=== PATIENT | female | born 2000 | race Caucasian/White ===

== ENCOUNTER 2020-10-27 09:41 | Inpatient (IN) | payer OTHER ==
[~2020-10-27] VITALS: Ht 172.7 cm; Wt 59.0 kg
--- NOTE | ~2020-10-27 | O ---
[facility] [place] [address] OPERATIVE REPORT Name: FLORENTIN HOFFMANN Room #: 436-P ADM IN M.R.#: [id number] Admission: 10/27/20 Attend Phys: Gerry Puga, Discharge: Date of : 89 Report #: [id number] THIS REPORT FOR: cc: SARAH - Jasmin family physician/PCP SARAH - No family physician/PCP Gerry Puga MD ~ CC: [facility] physician/PCP Gerry Puga DATE OF SERVICE: 10/28/2020 PREOPERATIVE DIAGNOSIS: Acute appendicitis. POSTOPERATIVE DIAGNOSIS: Acute appendicitis. OPERATION: Laparoscopic appendectomy. SURGEON: Gerry Puga MD ANESTHESIA: General. ESTIMATED BLOOD LOSS: Minimal. SPECIMEN: Appendix. DESCRIPTION OF PROCEDURE: After informed consent was obtained, the patient was brought to the operating room and placed supine. SCDs were placed and working, preoperative antibiotics were administered, general anesthesia was induced. The abdomen was prepped and draped in the usual sterile fashion. A 10 mm incision was made below the umbilicus. Fascia was incised and a trocar was placed. Pneumoperitoneum was established. Right upper quadrant and left lower quadrant 5 mm trocars were placed. The appendix was grasped and retracted anteriorly. A window was made in the mesoappendix. The mesoappendix was ligated with a PHOEBE suresh load stapler. I then ligated the base of the appendix with a PHOEBE blue load stapler. Appendix was then placed into an Endopouch and removed. The fascia at the umbilicus was closed with a [id number] 0 Vicryl. Skin was closed with 4-0 Monocryl. Incisions were sealed with Steri-Strips. COMPLICATIONS: None. [facility] [address] [place] [address] OPERATIVE REPORT Name: FLORENTIN HOFFMANN Room #: 436-P [facility] IN .R.#: [id number] Admission: 10/27/20 Attend Phys: Gerry Puga, Discharge: Date of : 89 Report #: [id number] DISPOSITION: The patient was taken to recovery in satisfactory condition. By: [id number] Gerry Puga MD /nt
[2020-10-27 09:41] VITALS: BP 141/57
[2020-10-27 10:19] LABS: URINE BILIRUBIN NEGATIVE (Negative); URINE BLOOD NEGATIVE (Negative); URINE CLARITY SL CLOUDY; URINE COLOR YELLOW; URINE GLUCOSE-RANDOM* NEGATIVE (Negative); URINE KETONES 1+ (Negative); URINE NITRITE-REFLEX NEGATIVE (Negative); URINE PROTEIN (DIPSTICK) NEGATIVE (Negative); URINE UROBILINOGEN 0.2 E.U./dl (0.2-1.0)
[2020-10-27 10:26] LABS: URINE LEUKOCYTES-REFLEX 3+ (Negative)
[2020-10-27 10:38] LABS: ABSOLUTE NEUTROPHILS 10.4 thou/uL (1.4-8.2); BASOPHILS 0.3 % (0.0-2.0); EOSINOPHILS 0.7 % (0.0-3.0); HEMATOCRIT 38.3 % (37.0-47.0); HEMOGLOBIN 12.7 gm/dL (12.0-15.0); LYMPHOCYTES 6.9 % (24.0-44.0); MCH 29.6 pg (26.0-34.0); MCHC 33.1 g/dL (28.0-37.0); MCV 89.6 fL (80.0-100.0); MONOCYTES 6.9 % (1.0-8.0); PLATELET COUNT 181 thou/uL (150-400); POLYS 85.2 % (36.0-66.0); RBC 4.27 mil/uL (4.20-5.00); RDW 12.7 % (10.5-14.5); WBC 12.2 thou/uL (4.0-11.0)
[2020-10-27 10:38] LABS: CASTS None Seen /LPF (None Seen); SQUAMOUS >10 Many /LPF (0-3); URINE RBC 0-2 Rare /HPF (0-2)
[2020-10-27 10:39] LABS: CALCIUM 9.3 mg/dL (8.5-10.1); CREATININE 0.9 mg/dL (0.6-1.0); POTASSIUM 3.5 mmol/L (3.5-5.1)
[2020-10-27 10:39] LABS: AMORPHOUS URATES Moderate /LPF (None Seen)
[2020-10-27 10:45] LABS: ALBUMIN 4.1 g/dL (3.4-5.0); TOTAL BILIRUBIN 1.3 mg/dL (0.2-1.0)
[2020-10-27 19:07] VITALS: BP 122/70
[2020-10-27 20:43] VITALS: BP 112/56
[2020-10-27 21:07] VITALS: BP 109/60
--- NOTE | 2020-10-27 23:07 | NUR ---
PATIENT ARRIVED VIA WHEELCHAIR FROM ED. ALERT AND ORIENTED X4. DENIES PAIN. NEW ORDER FOR ALPRAZOLAM. IVF INFUSING W/O COMPLICATION. COOPERATIVE AND PLEASANT.
[2020-10-28] VITALS (7 sets, daily range): BP systolic 11–116; BP diastolic 54–72
--- NOTE | 2020-10-28 11:50 | NUR ---
ASSUMED PT CARE THIS AM. PT VSS, A&OX4. PT AMBULATORY TO THE RESTROOM. IV PATENT, FLUIDS INFUSING WITHOUT COMPLAINT. PT COMPLAINING OF NO PAIN. NPO FOR PROCEDURE TODAY. PT CONTINENT OF B&B. PT CALLS APPROPRIATELY WHEN NEEDED. PT WENT DOWN FOR SURGERY THIS AM.
--- NOTE | 2020-10-28 16:12 | NUR ---
ASSESSMENT: CM REVIEWED CHART AND SPOKE WITH PT. PT IS ALERT AND ORIENTED X4. PT IS S/P LAP APPE. PT REPORTS LIVING IN A HOUSE WITH HER AUNT WHO IS AN RN. PT REPORTS SHE IS FULLY INDEPENDENT WITH ADLS AND AMBULATION. PT REPORTS HAVING NO INSURANCE. CM PROVIDED PATIENT WITH A [employer] PACKET/SAFETY NET PACKET. PT DOES NOT ANTICIPATE HAVING ANY NEEDS FROM CM PRIOR TO DISCHARGE.
--- NOTE | 2020-10-29 03:24 | NUR ---
ASSUMED PT CARE AT SHIFT CHANGE. PT IS A&OX4. IV IS IN HER RIGHT AC. PT TOLLERATES MEDICATION. NO COMPLAINTS OF N/V. PT CALLS OUT APPROPRIATELY FOR ASSISTANCE. PT COMPLAINS OF PAIN IN HER ABDOMEN AND HER SHOULDER. ADMINISTERED PAIN MEDICATION. PT IS ON HER PHONE AND IN A HAPPY APPROPRIATE MOOD. PT AMBULATES TO THE UP AD FREDO. PT IS ASLEEP IN HER ROOM. HOURLY ROUNDING PERFORMED. WILL CONTINUE TO MONITOR.
[2020-10-29 04:33] VITALS: BP 105/54
[2020-10-29 08:00] VITALS: BP 103/62
--- NOTE | 2020-10-29 10:38 | NUR ---
PT RESTING IN BED ALERT XS 4 TOOK AM MEDS AND PRN PAIN MED. ABD INCISIONS NO DRAINAGE. HAS IV ABT. MOM AT BEDSIDE.
[2020-10-29] MEDS ORDERED: NORCO 10-325 T1 EACH PO (10:54)
[2020-10-29 11:12] VITALS: BP 103/62
--- NOTE | 2020-10-29 12:50 | NUR ---
ON-GOING ASSESSMENT: PT HAD ORDERS TO D/C HOME TODAY WITH NO NEEDS. PT HAD [employer] PACKET/SAFETY NET PACKET.
== END 2020-10-29 11:39 | disposition home or self-care (01) | DRG 343 ==
LOC: ER 09:41 → EROBS 12:11 → 4S 20:44
PROVIDERS: Emergency Medicine; ADMIT Surgery; ATTEND Surgery
PROC: 0DTJ4ZZ Resection of Appendix, Percutaneous Endoscopic Approach (ICD-10-PCS; principal; 2020-10-28)
DX: K35.80 Unspecified acute appendicitis (principal); Z88.1 Allergy status to other antibiotic agents; Z87.891 Personal history of nicotine dependence; Z20.828 Contact with and (suspected) exposure to other viral communicable diseases; Z79.899 Other long term (current) drug therapy
CPT/HCPCS: 10102; 50010; 50101; 50411; 50555; 50739; 50740; 52265; 52266; 53307; 53312; 53314; 56525; 56526; 62110; 62900; 70005